=== PATIENT | female | born 1955 | race Hispanic/Latino ===

== ENCOUNTER 2018-05-18 18:47 | Emergency (ER) | payer OTHER, MEDICARE, MEDICAID ==
[2018-05-18 19:04] VITALS: O2SAT 98
[2018-05-18] MEDS ORDERED: Naproxen 275 mg Tab PO STA (20:10)
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
[2018-05-18] MEDS ORDERED: Naproxen 550 mg Tab PO ONE (20:38)
[2018-05-18 21:07] VITALS: BP 161/72; PULSE 79; RESP 20; TEMP 98
== END 2018-05-18 21:07 | disposition home or self-care (01) ==
LOC: C.ER 18:47
DX: M79.18 Myalgia, other site (principal); V49.40XA Driver injured in collision with unspecified motor vehicles in traffic accident, initial encounter